=== PATIENT | male | born 1985 | race African-American/Black ===

== ENCOUNTER 2024-10-20 02:20 | Emergency (ER) | payer OTHER ==
[~2024-10-20] VITALS: Ht 188 cm; Wt 136.0 kg
[2024-10-20] MEDS: METHYLPREDNISOLONE SOD SUCC 125MG/2ML (ACT-O-VIAL) IM STA (03:10)
[2024-10-20 03:12] VITALS: PULSE 84; RESP 20; O2SAT 96
[2024-10-20] MEDS: ALBUTEROL (0.083%) 2.5MG/3ML NEB HHN ONE ×2 (03:12→04:11)
[2024-10-20] MEDS ORDERED: P50 MT (04:06)
[2024-10-20] MEDS ORDERED: ALBU18HF2 IH (04:06)
[2024-10-20 04:12] VITALS: PULSE 82; RESP 20; O2SAT 98
[2024-10-20 05:15] VITALS: BP 118/72; PULSE 88; RESP 18; TEMP 36.89184; O2SAT 99
== END 2024-10-20 05:17 | disposition home or self-care (01) ==
LOC: ER 02:20
DX: J45.901 Unspecified asthma with (acute) exacerbation (principal); I49.9 Cardiac arrhythmia, unspecified
CPT/HCPCS: 71045; 94640; 93005; 96372; 99284; J2919; Z7610 ×4